=== PATIENT | female | born 1985 | race Two or more races ===

== ENCOUNTER 2019-09-19 09:50 | Inpatient (IN) | payer MEDICAID ==
[~2019-09-19] VITALS: Ht 162.6 cm; Wt 107.0 kg
--- NOTE | 2019-09-19 10:08 | NUR ---
L&D NOTIFIED OF THIS PT VIA PHONE. THEY WILL COME CONSULT TO CHECK HEART TONES.
--- NOTE | 2019-09-19 10:21 | NUR ---
L&D, WELL PA-C IS AT THE BEDSIDE FOR ASSESSMENT
--- NOTE | 2019-09-19 10:26 | NUR ---
L&D NURSE UNABLE TO FIND HEART TONES W HANDHELD SONOGRAM. FULL STUDY TO FOLLOW.
[2019-09-19] MEDS ORDERED: ACETAMINOPHEN 325 MG TABLET ONE (10:48)
--- NOTE | 2019-09-19 10:51 | NUR ---
TASK RN: CXR AT BEDSIDE MEDICATED PER EMAR FOR RAE/ABD PAIN & ALSO PROVIDED WITH PO FLUIDS-TOLERATING HELPED UP TO RESTROOM FOR UA
[2019-09-19] MEDS ORDERED: ONDANSETRON ODT 4 MG ONE (10:58)
[2019-09-19] MEDS ORDERED: ACETAMINOPHEN 325 MG TABLET PO ONE (11:00)
[2019-09-19 11:05] LABS: RAPID INFLUENZA A Negative (Negative); RAPID INFLUENZA B Negative (Negative)
--- NOTE | 2019-09-19 11:22 | NUR ---
Task RN: with Ambulation-Patient lightheadednes/nauseated. hr to 115. Sat back down and provider made aware. re-dosed with odt zofran and orders for iv and ivf received Piv placed from which labs were drawn-then medicated per emar w 1l ns bolus
[2019-09-19 11:28] LABS: BASOPHILS # (AUTO) 0.03 x10^3/uL (0-0.1); BASOPHILS % (AUTO) 0 % (0-1); EOSINOPHILS # (AUTO) 0.01 x10^3/uL (0-0.4); EOSINOPHILS % (AUTO) 0 % (1-7); LYMPHOCYTES % (AUTO) 15 % (22-44); MD NO; MEAN CORPUSCULAR HEMOGLOBIN 28.8 pg (27.0-34.8); MEAN CORPUSCULAR HGB CONC 32.7 g/dL (32.4-35.8); MEAN CORPUSCULAR VOLUME 88.2 fL (80-100); MEAN PLATELET VOLUME 9.6 fL (7.4-10.4); MONOCYTES # (AUTO) 0.23 x10^3/uL (0.2-0.8); MONOCYTES % (AUTO) 3 % (2-9); NEUTROPHILS # (AUTO) 6.67 x10^3/uL (1.8-6.8); NEUTROPHILS % (AUTO) 82 % (42-75); PLATELET COUNT 251 x10^3/uL (130-400); RED BLOOD COUNT 5.49 x10^6/uL (3.82-5.3)
[2019-09-19] MEDS ORDERED: SODIUM CHLORIDE 0.9% 1,000ML IVBOLUS ONE (11:30)
[2019-09-19] MEDS ORDERED: ONDANSETRON 2MG/ML, 2ML IVPush ONE (11:30)
[2019-09-19] MEDS ORDERED: SODIUM CHLORIDE FLUSH 10ML SYR IVF ONE (11:30)
[2019-09-19 11:41] LABS: ALANINE AMINOTRANSFERASE 101 U/L (12-78); ALBUMIN 3.3 g/dL (3.4-5.0); ANION GAP 11 mmol/L (5-15); CALCIUM 9.3 mg/dL (8.5-10.1); CHLORIDE 108 mmol/L (98-107); CREATININE 0.57 mg/dL (0.55-1.02)
[2019-09-19 11:44] LABS: ALKALINE PHOSPHATASE 91 U/L (45-117); BILIRUBIN,TOTAL 0.6 mg/dL (0.2-1.0); TOTAL PROTEIN 8.4 g/dL (6.4-8.2)
[2019-09-19] MEDS ORDERED: CEFTRIAXONE PMX 1GM/50ML 50 ML ONE (11:58)
[2019-09-19] MEDS ORDERED: AZITHROMYCIN 500 MG TABLET PO ONE (12:00)
[2019-09-19] MEDS ORDERED: ONDANSETRON ODT 4 MG PO ONE (12:00)
[2019-09-19] MEDS ORDERED: CEFTRIAXONE 1,000 MG IM ONE (12:00)
--- NOTE | 2019-09-19 12:06 | NUR ---
ultrasound is at the bedside
--- NOTE | 2019-09-19 12:07 | NUR ---
pt tearful w anxiety regarding prognosis. education provided, and re-assurance given
--- NOTE | 2019-09-19 12:22 | NUR ---
LAB NOTIFIED OF THE NECESITY OF CULTURES.
--- NOTE | 2019-09-19 12:26 | NUR ---
BLOOD CULTURES ARE BEING DRAWN AT THE BEDSIDE.
[2019-09-19] MEDS ORDERED: AZITHROMYCIN 500 MG TABLET ONE (12:40)
--- NOTE | 2019-09-19 13:02 | NUR ---
GERMAINE (RN) IS ASSUMING CARE OF THIS PT AT THIS TIME. SBAR REPORT WAS EXCHANGED AT THE BEDSIDE.
[2019-09-19] MEDS ORDERED: METOCLOPRAMIDE 5 MG/ML, 2ML IVPush ONE (13:30)
[2019-09-19] MEDS ORDERED: ONDANSETRON 2MG/ML, 2ML IVPush PRN (14:00)
[2019-09-19] MEDS ORDERED: AZITHROMYCIN 500 MG in SODIUM CHLORIDE 0.9% 250 ML IV ONE (14:00)
[2019-09-19] MEDS ORDERED: METOCLOPRAMIDE 5 MG/ML, 2ML ONE (14:00)
[2019-09-19] MEDS ORDERED: ENOXAPARIN 40 MG/0.4 ML SQ SCH (14:00)
[2019-09-19] MEDS ORDERED: ENOXAPARIN 40 MG/0.4 ML ONE (14:23)
[2019-09-19 14:30] LABS: FREE T4 (FREE THYROXINE) 0.86 ng/dL (0.76-1.46)
[2019-09-19] MEDS ORDERED: POTASSIUM CHLORIDE 20 MEQ in SODIUM CHLORIDE 0.9% 250 ML IV ONE (15:00)
--- NOTE | 2019-09-19 15:00 | NUR ---
pt ambulated to bathom without problem, pt has steady gait
[2019-09-19] MEDS ORDERED: PREN1COM3 PO (15:25)
--- NOTE | 2019-09-19 15:26 | NUR ---
was told by alona off going rn that pt was given po zofran but pt soon vomited after and he was waiting to see if nausea subsided from the minimal amount of zofran pt might have recieved.
--- NOTE | 2019-09-19 15:28 | NUR ---
pt report given to raji lewis and pt transfered to floor
[2019-09-19 15:30] VITALS: BP 118/72
[2019-09-19 16:01] LABS: CULTURE INDICATED? YES; MICROSCOPIC INDICATED
[2019-09-19] MEDS: CALCIUM CARBONATE 500 MG TAB.CHEW PO PRN ×2 (18:37→22:00)
[2019-09-19 19:00] VITALS: BP 118/82
[2019-09-19] MEDS: D5%-0.45NACL+KCL 20MEQ 1,000 ML IV SCH (21:45)
[2019-09-19] MEDS: MAGNESIUM SULFATE PMX 2GM/50ML 50 ML IV ONE (21:45)
[2019-09-20 01:00] VITALS: BP 100/66
[2019-09-20] MEDS: MAGNESIUM SULFATE PMX 2GM/50ML 50 ML IV ONE (01:23)
[2019-09-20 05:52] LABS: BASOPHILS # (AUTO) 0.02 x10^3/uL (0-0.1); BASOPHILS % (AUTO) 0 % (0-1); EOSINOPHILS # (AUTO) 0.03 x10^3/uL (0-0.4); EOSINOPHILS % (AUTO) 0 % (1-7); LYMPHOCYTES # (AUTO) 1.32 x10^3/uL (1-3.4); LYMPHOCYTES % (AUTO) 19 % (22-44); MD NO; MEAN CORPUSCULAR HEMOGLOBIN 28.8 pg (27.0-34.8); MEAN CORPUSCULAR HGB CONC 32.7 g/dL (32.4-35.8); MEAN CORPUSCULAR VOLUME 87.9 fL (80-100); MEAN PLATELET VOLUME 10.1 fL (7.4-10.4); MONOCYTES # (AUTO) 0.19 x10^3/uL (0.2-0.8); MONOCYTES % (AUTO) 3 % (2-9); NEUTROPHILS # (AUTO) 5.29 x10^3/uL (1.8-6.8); NEUTROPHILS % (AUTO) 77 % (42-75); PLATELET COUNT 198 x10^3/uL (130-400); RED BLOOD COUNT 4.47 x10^6/uL (3.82-5.3)
[2019-09-20 05:54] LABS: ALANINE AMINOTRANSFERASE 86 U/L (12-78); ALBUMIN 2.2 g/dL (3.4-5.0); ANION GAP 9 mmol/L (5-15); CALCIUM 7.8 mg/dL (8.5-10.1); CHLORIDE 112 mmol/L (98-107); CREATININE 0.36 mg/dL (0.55-1.02)
[2019-09-20 05:56] LABS: ALKALINE PHOSPHATASE 66 U/L (45-117); BILIRUBIN,TOTAL 0.5 mg/dL (0.2-1.0); TOTAL PROTEIN 6.1 g/dL (6.4-8.2)
[2019-09-20 07:12] VITALS: BP_SYST 85; BP_SYST 95; BP_DIAS 50
[2019-09-20] MEDS: ACETAMINOPHEN 325 MG TABLET PO PRN ×2 (08:49→23:37)
[2019-09-20] MEDS: PRENATAL VIT/IRON/FA 1 EACH TABLET PO SCH (08:49)
[2019-09-20] MEDS: POTASSIUM CHLORIDE 20 MEQ TAB.ER.PRT PO SCH ×2 (08:49→17:00)
[2019-09-20] MEDS ORDERED: AZITHROMYCIN 500 MG TABLET PO SCH (09:00)
[2019-09-20] MEDS ORDERED: CEFTRIAXONE PMX 1GM/50ML 50 ML IV SCH (09:00)
[2019-09-20] MEDS: D5%-0.45NACL+KCL 20MEQ 1,000 ML IV SCH ×2 (10:55→18:00)
[2019-09-20] MEDS: ENOXAPARIN 30 MG/0.3 ML SQ SCH ×2 (12:00→23:07)
[2019-09-20 14:19] VITALS: BP 95/63
[2019-09-20 21:59] VITALS: BP 85/56
[2019-09-20] MEDS: METOCLOPRAMIDE 5 MG/ML, 2ML IVPush PRN (23:07)
[2019-09-21 00:56] VITALS: BP 88/61
[2019-09-21] MEDS: D5%-0.45NACL+KCL 20MEQ 1,000 ML IV SCH ×2 (02:00→18:00)
[2019-09-21 05:18] LABS: ALBUMIN 2.2 g/dL (3.4-5.0); ANION GAP 5 mmol/L (5-15); BASOPHILS # (AUTO) 0.02 x10^3/uL (0-0.1); BASOPHILS % (AUTO) 0 % (0-1); CHLORIDE 114 mmol/L (98-107); EOSINOPHILS # (AUTO) 0.01 x10^3/uL (0-0.4); EOSINOPHILS % (AUTO) 0 % (1-7); LYMPHOCYTES # (AUTO) 1.38 x10^3/uL (1-3.4); LYMPHOCYTES % (AUTO) 20 % (22-44); MD NO; MEAN CORPUSCULAR HEMOGLOBIN 28.9 pg (27.0-34.8); MEAN CORPUSCULAR VOLUME 87.6 fL (80-100); MEAN PLATELET VOLUME 9.4 fL (7.4-10.4); MONOCYTES # (AUTO) 0.22 x10^3/uL (0.2-0.8); MONOCYTES % (AUTO) 3 % (2-9); NEUTROPHILS # (AUTO) 5.34 x10^3/uL (1.8-6.8); NEUTROPHILS % (AUTO) 77 % (42-75); PLATELET COUNT 211 x10^3/uL (130-400); RED BLOOD COUNT 4.46 x10^6/uL (3.82-5.3); RED CELL DISTRIBUTION WIDTH 14.2 % (9.6-15.2)
[2019-09-21 05:27] LABS: ALANINE AMINOTRANSFERASE 92 U/L (12-78); ALKALINE PHOSPHATASE 70 U/L (45-117); BILIRUBIN,TOTAL 0.6 mg/dL (0.2-1.0); CREATININE 0.29 mg/dL (0.55-1.02); TOTAL PROTEIN 6.1 g/dL (6.4-8.2)
[2019-09-21 08:46] VITALS: BP 105/74
[2019-09-21] MEDS: PRENATAL VIT/IRON/FA 1 EACH TABLET PO SCH (08:52)
[2019-09-21] MEDS: POTASSIUM CHLORIDE 20 MEQ TAB.ER.PRT PO SCH ×2 (08:52→17:00)
[2019-09-21] MEDS: ENOXAPARIN 30 MG/0.3 ML SQ SCH (12:00)
[2019-09-21] MEDS: CALCIUM CARBONATE 500 MG TAB.CHEW PO PRN ×2 (12:16→17:34)
[2019-09-21 14:38] VITALS: BP 106/72
[2019-09-21] MEDS: ACETAMINOPHEN 325 MG TABLET PO PRN (17:34)
[2019-09-21 19:04] VITALS: BP 99/83
[2019-09-22 00:54] VITALS: BP 112/79
[2019-09-22 06:24] LABS: BASOPHILS # (AUTO) 0.02 x10^3/uL (0-0.1); BASOPHILS % (AUTO) 0 % (0-1); EOSINOPHILS # (AUTO) 0.05 x10^3/uL (0-0.4); EOSINOPHILS % (AUTO) 1 % (1-7); LYMPHOCYTES # (AUTO) 1.67 x10^3/uL (1-3.4); LYMPHOCYTES % (AUTO) 24 % (22-44); MD NO; MEAN CORPUSCULAR HEMOGLOBIN 28.7 pg (27.0-34.8); MEAN CORPUSCULAR HGB CONC 33.1 g/dL (32.4-35.8); MEAN CORPUSCULAR VOLUME 86.6 fL (80-100); MEAN PLATELET VOLUME 9.4 fL (7.4-10.4); MONOCYTES # (AUTO) 0.32 x10^3/uL (0.2-0.8); MONOCYTES % (AUTO) 5 % (2-9); NEUTROPHILS # (AUTO) 4.81 x10^3/uL (1.8-6.8); NEUTROPHILS % (AUTO) 70 % (42-75); PLATELET COUNT 224 x10^3/uL (130-400); RED BLOOD COUNT 4.84 x10^6/uL (3.82-5.3); RED CELL DISTRIBUTION WIDTH 14.1 % (9.6-15.2)
[2019-09-22] MEDS: ENOXAPARIN 30 MG/0.3 ML SQ SCH (06:31)
[2019-09-22] MEDS: METOCLOPRAMIDE 5 MG/ML, 2ML IVPush PRN (06:35)
[2019-09-22 06:42] LABS: CHLORIDE 111 mmol/L (98-107)
[2019-09-22 06:50] LABS: ALANINE AMINOTRANSFERASE 89 U/L (12-78); ALBUMIN 2.4 g/dL (3.4-5.0); ALKALINE PHOSPHATASE 78 U/L (45-117); ANION GAP 9 mmol/L (5-15); BILIRUBIN,TOTAL 0.6 mg/dL (0.2-1.0); CALCIUM 8.7 mg/dL (8.5-10.1); CREATININE 0.37 mg/dL (0.55-1.02); TOTAL PROTEIN 6.7 g/dL (6.4-8.2)
[2019-09-22] MEDS ORDERED: ONDA4TAB13 SL (08:17)
[2019-09-22 08:50] VITALS: BP 110/80
[2019-09-22] MEDS: CALCIUM CARBONATE 500 MG TAB.CHEW PO PRN (09:08)
[2019-09-22] MEDS: PRENATAL VIT/IRON/FA 1 EACH TABLET PO SCH (09:08)
[2019-09-22] MEDS: ACETAMINOPHEN 325 MG TABLET PO PRN (09:08)
[2019-09-22] MEDS: POTASSIUM CHLORIDE 20 MEQ TAB.ER.PRT PO SCH (09:08)
== END 2019-09-22 09:40 | disposition home or self-care (01) | DRG 831 ==
LOC: ED 10:14 → EDIP 13:06 → 3E 15:29
PROVIDERS: ADMIT Hospitalist; ATTEND Family Medicine
DX: O98.512 Other viral diseases complicating pregnancy, second trimester (principal); U07.1 COVID-19; J12.89 Other viral pneumonia; O41.02X0 Oligohydramnios, second trimester, not applicable or unspecified; D64.9 Anemia, unspecified; E86.0 Dehydration; E87.6 Hypokalemia; O21.1 Hyperemesis gravidarum with metabolic disturbance; O36.8120 Decreased fetal movements, second trimester, not applicable or unspecified; O99.012 Anemia complicating pregnancy, second trimester; O99.282 Endocrine, nutritional and metabolic diseases complicating pregnancy, second trimester; O99.512 Diseases of the respiratory system complicating pregnancy, second trimester; O99.89 Other specified diseases and conditions complicating pregnancy, childbirth and the puerperium; Z3A.23 23 weeks gestation of pregnancy; Z83.3 Family history of diabetes mellitus
CPT/HCPCS: 36415; 71045; 76815; 80053; 81001; 82728; 83615; 83735; 84100; 84145; 84439; 84443; 85025; 85379; 86140; 87040; 87081; 87086; 87400; 87880; 96361; 96372; 96374; G0378; J0456; J0696; J1650; J3480; J2765; J3475; J7030; J7050